=== PATIENT | male | born 1985 | race Caucasian/White ===

== ENCOUNTER 2018-06-07 20:16 | Observation (INO) | payer SELFPAY ==
[2018-06-07] MEDS ORDERED: Morphine VIAL* 10 MG/ML 1 ML VIAL IV ONE (20:37)
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
[2018-06-07 22:07] LABS: ABS Basophils 0 10^3/ul (0-0.2); ABS Eosinophils 0 10^3/ul (0-0.6); ABS Monocytes 0.6 10^3/ul (0-0.8); ABS Nucleated RBC 0 10^3/ul; Eosinophil % 0.1 %; Hematocrit 42 % (42-52); Hemoglobin 13.8 g/dl (14.0-18.0); Lymphocyte % 7.6 %; Mean Corpuscular HGB Conc 33 g/dl (31-36); Mean Corpuscular Hemoglobin 30 pg (27-31); Mean Corpuscular Volume 92 fL (80-94); Mean Platelet Volume 8.5 fL (7.4-10.4); Nucleated Red Blood Cells % 0; Platelet Count 159 10^3/ul (150-450); Red Blood Count 4.56 10^6/ul (4.00-5.40); Red Cell Distribution Width 13 % (10.5-15); White Blood Count 12.6 10^3/ul (3.5-10.8)
[2018-06-07 22:23] LABS: Albumin 4.4 g/dL (3.2-5.2); Albumin/Globulin Ratio 2.3 (1-3); C Reactive Protein 1.18 mg/L (<8.01); Calcium 9.4 mg/dL (8.6-10.3); EGFR African American 95.7 (>60); EGFR Non-African American 79.1 (>60); Globulin 1.9 g/dL (2-4); Total Bilirubin 0.4 mg/dL (0.2-1.0); Total Protein 6.3 g/dL (6.4-8.9)
[2018-06-07] MEDS ORDERED: Iohexol 300* (CONTRAST) 10 ML SDV IV ONE (22:34)
[2018-06-08] MEDS ORDERED: oxyCODONE TAB* 5 MG TAB PO ONE (01:33)
[2018-06-08] MEDS ORDERED: HYDROmorphone INJ1* 1 MG/ML SYRINGE IV SLOW PU PRN ×2 (04:56→10:43)
[2018-06-08 05:33] LABS: ABS Basophils 0 10^3/ul (0-0.2); ABS Eosinophils 0.1 10^3/ul (0-0.6); ABS Lymphocytes 1.4 10^3/ul (1.0-4.8); ABS Monocytes 0.5 10^3/ul (0-0.8); ABS Nucleated RBC 0 10^3/ul; Eosinophil % 0.8 %; Hematocrit 42 % (42-52); Hemoglobin 13.9 g/dl (14.0-18.0); Lymphocyte % 20.1 %; Mean Corpuscular HGB Conc 33 g/dl (31-36); Mean Corpuscular Hemoglobin 30 pg (27-31); Mean Corpuscular Volume 91 fL (80-94); Mean Platelet Volume 8.5 fL (7.4-10.4); Nucleated Red Blood Cells % 0; Platelet Count 160 10^3/ul (150-450); Red Blood Count 4.61 10^6/ul (4.00-5.40); Red Cell Distribution Width 13 % (10.5-15)
[2018-06-08 05:42] LABS: Activated Partial Thrombo Time 30.1 seconds (26.0-36.3); INR 0.94 (0.77-1.02)
[2018-06-08 05:52] LABS: EGFR African American 109.8 (>60); EGFR Non-African American 90.8 (>60)
[2018-06-08] MEDS: Heparin VIAL(*) 5000 UNITS/ML VIAL (FIVE THOUSAND) SUBCUT SCH ×3 (06:23→21:05)
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
[2018-06-08] MEDS: oxyCODONE TAB* 5 MG TAB PO PRN ×2 (07:42→12:54)
[2018-06-08] MEDS ORDERED: HYDROmorphone INJ1* 1 MG/ML SYRINGE IV SLOW PU ONE (11:01)
[2018-06-08] MEDS ORDERED: Magnesium Hydroxide LIQ* 30 ML UDC PO PRN (13:43)
[2018-06-08] MEDS ORDERED: Senna TAB PO PRN (13:43)
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
[2018-06-08] MEDS: Ondansetron INJ* 2 MG/ML VIAL IV PRN (16:42)
[2018-06-08] MEDS: Ketorolac INJ* 15 MG/ML 1 ML VIAL IV PUSH PRN (17:49)
[2018-06-08] MEDS ORDERED: Senna TAB PO ONE (20:48)
[2018-06-08] MEDS: Docusate CAP* 100 MG PO SCH (21:06)
[2018-06-08] MEDS: Gabapentin CAP(*) 100 MG PO SCH (21:07)
[2018-06-08] MEDS: Polyethylene Glycol 3350* 17 GM PACKET PO PRN (21:11)
[2018-06-09] MEDS: Ketorolac INJ* 15 MG/ML 1 ML VIAL IV PUSH PRN ×4 (00:23→22:00)
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
[2018-06-09] MEDS: Heparin VIAL(*) 5000 UNITS/ML VIAL (FIVE THOUSAND) SUBCUT SCH ×3 (06:19→22:01)
[2018-06-09 07:06] LABS: ABS Basophils 0 10^3/ul (0-0.2); ABS Eosinophils 0 10^3/ul (0-0.6); ABS Lymphocytes 1.5 10^3/ul (1.0-4.8); ABS Monocytes 0.5 10^3/ul (0-0.8); ABS Neutrophils 2.9 10^3/ul (1.5-7.7); ABS Nucleated RBC 0 10^3/ul; Eosinophil % 0.9 %; Hematocrit 41 % (42-52); Hemoglobin 13.5 g/dl (14.0-18.0); Lymphocyte % 30.3 %; Mean Corpuscular HGB Conc 33 g/dl (31-36); Mean Corpuscular Hemoglobin 30 pg (27-31); Mean Corpuscular Volume 90 fL (80-94); Nucleated Red Blood Cells % 0.1; Platelet Count 151 10^3/ul (150-450); Red Cell Distribution Width 13 % (10.5-15); White Blood Count 5.1 10^3/ul (3.5-10.8)
[2018-06-09 07:21] LABS: Albumin 3.9 g/dL (3.2-5.2); Albumin/Globulin Ratio 2.1 (1-3); BUN/Creatinine Ratio 9.7 (8-20); Calcium 8.8 mg/dL (8.6-10.3); EGFR African American 112.5 (>60); Globulin 1.9 g/dL (2-4); Magnesium 1.9 mg/dL (1.9-2.7); Phosphorus 3.4 mg/dL (2.5-5.0); Potassium 3.9 mmol/L (3.5-5.0); Total Bilirubin 0.6 mg/dL (0.2-1.0); Total Protein 5.8 g/dL (6.4-8.9)
[2018-06-09] MEDS: Docusate CAP* 100 MG PO SCH ×2 (08:55→22:00)
[2018-06-09] MEDS: Gabapentin CAP(*) 100 MG PO SCH ×3 (08:55→22:00)
[2018-06-09] MEDS ORDERED: traMADol TAB* 50 MG PO PRN (12:24)
[2018-06-09] MEDS ORDERED: Ibuprofen TAB* 800 MG PO PRN (12:24)
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
[2018-06-09] MEDS: Polyethylene Glycol 3350* 17 GM PACKET PO PRN (17:02)
[2018-06-09] MEDS: Ondansetron INJ* 2 MG/ML VIAL IV PRN (20:00)
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
[2018-06-10] MEDS: Heparin VIAL(*) 5000 UNITS/ML VIAL (FIVE THOUSAND) SUBCUT SCH ×2 (05:45→13:39)
[2018-06-10] MEDS: Ketorolac INJ* 15 MG/ML 1 ML VIAL IV PUSH PRN ×2 (06:35→11:19)
[2018-06-10 07:41] LABS: Hematocrit 42 % (42-52); Hemoglobin 13.9 g/dl (14.0-18.0)
[2018-06-10] MEDS: Docusate CAP* 100 MG PO SCH (10:00)
[2018-06-10] MEDS: Gabapentin CAP(*) 100 MG PO SCH ×2 (10:01→13:38)
[2018-06-10 15:03] VITALS: BP 148/80
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
== END 2018-06-10 16:40 | disposition home or self-care (01) ==
LOC: ED 20:16 → MED 06-08 04:53
PROVIDERS: ADMIT Student in an Organized Health Care Education/Training Program; ATTEND Internal Medicine
DX: S22.061A Stable burst fracture of T7-T8 vertebra, initial encounter for closed fracture (principal); V86.52XA Driver of snowmobile injured in nontraffic accident, initial encounter; Z89.011 Acquired absence of right thumb; Y92.9 Unspecified place or not applicable; R07.9 Chest pain, unspecified; R10.9 Unspecified abdominal pain; Z87.891 Personal history of nicotine dependence
CPT/HCPCS: 36415; 70450; 71260; 72070; 72125; 72128; 72146; 74177; 80053; 82565; 83735; 84100; 84520; 85014; 85018; 85025; 85610; 85730; 86140; 96372; 96374; 96375; 96376; 99284; A9270-GY; G0378; J1170; J1644; J1885; J2270; J2405; Q9967